=== PATIENT | male | born 1960 | race Caucasian/White ===

== ENCOUNTER 2019-02-17 14:20 | Emergency (ER) | payer OTHER ==
[~2019-02-17] VITALS: Ht 172.7 cm; Wt 100.0 kg
[~2019-02-17 14:20] MED LIST: TOBRAMYCIN 5 ML5 ML OP
[2019-02-17 16:51] VITALS: BP 134/64
== END 2019-02-17 16:52 | disposition home or self-care (01) ==
LOC: ED 14:20
DX: S16.1XXA Strain of muscle, fascia and tendon at neck level, initial encounter (principal); F17.210 Nicotine dependence, cigarettes, uncomplicated; Z87.442 Personal history of urinary calculi; V89.0XXA Person injured in unspecified motor-vehicle accident, nontraffic, initial encounter

== ENCOUNTER → 2019-03-08 | Outpatient (CLI) | payer OTHER ==
[2019-02-17 16:51] VITALS: BP 134/64
== END ==
LOC: RAD 09:17
DX: M47.814 Spondylosis without myelopathy or radiculopathy, thoracic region (principal); G95.29 Other cord compression; S16.1XXA Strain of muscle, fascia and tendon at neck level, initial encounter

== ENCOUNTER 2019-05-03 08:30 | Outpatient (RCR) | payer OTHER | END 2019-05-28 | disposition still patient (30) | LOC: PT | DX: S16.1XXA Strain of muscle, fascia and tendon at neck level, initial encounter (principal); S29.012A Strain of muscle and tendon of back wall of thorax, initial encounter ==

== ENCOUNTER → 2020-03-04 | Day surgery (SDC) | payer SELFPAY | LOC: MSO 07:02 | DX: D17.1 Benign lipomatous neoplasm of skin and subcutaneous tissue of trunk (principal); G89.29 Other chronic pain; F17.210 Nicotine dependence, cigarettes, uncomplicated; M06.9 Rheumatoid arthritis, unspecified; M19.90 Unspecified osteoarthritis, unspecified site; Z80.9 Family history of malignant neoplasm, unspecified; Z98.2 Presence of cerebrospinal fluid drainage device; Z79.899 Other long term (current) drug therapy | CPT/HCPCS: J2704; J7120 ==

== ENCOUNTER → 2022-04-27 | Outpatient (CLI) | payer SELFPAY | LOC: RAD 16:38 | DX: R91.8 Other nonspecific abnormal finding of lung field (principal) ==

== ENCOUNTER → 2022-05-19 | Outpatient (CLI) | payer OTHER ==
[2022-05-19 09:36] LABS: CALCIUM 9.2 mg/dL (8.3-10.5)
== END ==
LOC: LAB 09:09
PROVIDERS: Family Medicine
DX: J20.9 Acute bronchitis, unspecified (principal); R91.8 Other nonspecific abnormal finding of lung field

== ENCOUNTER → 2023-06-09 | Outpatient (CLI) | payer MEDICARE, OTHER ==
[~2023-06-09] MED LIST changes: +LEVOTHYROXINE100 MC1 PO
== END ==
LOC: LAB 08:51
DX: Z12.5 Encounter for screening for malignant neoplasm of prostate (principal); E03.4 Atrophy of thyroid (acquired)

== ENCOUNTER → 2024-06-09 | Outpatient (CLI) | payer OTHER | LOC: LAB 09:38 | DX: E03.4 Atrophy of thyroid (acquired) (principal) ==